=== PATIENT | female | born 1950 | race Caucasian/White ===

== ENCOUNTER 2019-06-06 17:12 | Inpatient (IN) | payer OTHER ==
[~2019-06-06] VITALS: Ht 152.4 cm; Wt 72.6 kg
[2019-06-06 17:30] VITALS: BP 124/77
[2019-06-06 18:36] LABS: BASOPHILS # (AUTO) 0.1 K/uL (0.00-0.22); BASOPHILS % (AUTO) 1.7 % (0.0-2.0); EOSINOPHILS # (AUTO) 0.1 K/uL (0-0.4); EOSINOPHILS % (AUTO) 1.6 % (0.0-4.0); HEMATOCRIT 41.3 % (36-48); HEMOGLOBIN 13.8 g/dL (12.0-16.0); LYMPHOCYTES # (AUTO) 1.8 K/uL (2.5-16.5); LYMPHOCYTES % (AUTO) 21.9 % (20.5-51.1); MEAN CORPUSCULAR HEMOGLOBIN 30 pg (27-31); MEAN CORPUSCULAR HGB CONC 34 g/dL (33-37); MEAN CORPUSCULAR VOLUME 88.5 fL (80-94); MONOCYTES # (AUTO) 0.3 K/uL (0.8-1.0); MONOCYTES % (AUTO) 4.3 % (1.7-9.3); NEUTROPHILS # (AUTO) 5.6 K/uL (1.8-7.7); NEUTROPHILS % (AUTO) 70.5 % (42.2-75.2); PLATELET COUNT (AUTO) 266 K/uL (140-450); RED BLOOD CELL COUNT(AUTO) 4.67 MIL/uL (4.20-5.40); RED CELL DISTRIBUTION WIDTH 15.1 % (11.6-13.7)
[2019-06-06 18:46] LABS: ANION GAP 14.7 (8-16); CARBON DIOXIDE 28.5 mmol/L (21-32); CREATININE 0.8 mg/dL (0.6-1.3); POTASSIUM 4.2 mmol/L (3.5-5.1)
[2019-06-06 18:52] LABS: ALBUMIN 3.7 g/dL (3.4-5.0); TOTAL BILIRUBIN 0.3 mg/dL (0.0-1.0)
--- NOTE | 2019-06-06 19:40 | NUR ---
PT AMBULATED TO BED 8 WITH FAMILY MEMBER
--- NOTE | 2019-06-06 19:56 | NUR ---
PT CAME TO ER C/O OF CHEST PAIN AND PALPITATIONS SINCE 1529 TODAY. CHEST PAIN RADIATING TO LEFT SIDE OF ARM WITH TINGLING TO THE FINGERS. PAIN LEVEL 7/10. PT ALSO HAD SHORTNESS OF BREATH EARLIER, BUT "FEELS FINE NOW." PT STATED "I AM DEALING WITH ALOT OF STRESS FROM WORK." VSS. ALLERGIES: ERYTHROMYCIN. MED HX: HYPOTENSION AND FIBROMYALGIA. SAFETY MEASURES IN PLACE. ERMD AT BEDSIDE.
[2019-06-06] MEDS ORDERED: LORazepam 1 MG TAB PO ONE (20:05)
[2019-06-06] MEDS ORDERED: ASPIRIN 325 MG TAB PO ONE (20:05)
--- NOTE | 2019-06-06 20:44 | NUR ---
PT RESTING IN BED, TALKING ON CELL PHONE. VSS. WILL CONTINUE TO MONITOR.
[2019-06-06] MEDS ORDERED: HYDROcodone/APAP 7.5/325 MG 1 TAB PO PRN (20:50)
[2019-06-06] MEDS ORDERED: ONDANSETRON 4 MG/2 ML VIAL IVP PRN (20:50)
[2019-06-06 21:00] VITALS: BP 117/68
--- NOTE | 2019-06-06 21:10 | NUR ---
Transfer of care and report given to ROHIT Enrique
--- NOTE | 2019-06-06 21:10 | NUR ---
REPORT RECEIVED FROM ED NURSE AT BEDSIDE. PT IN STABLE CONDITION. AAOX4. INTRODUCED SELF TO PT. BOARD UPDATED. NO COMPLAINTS OF PAIN. NO SOB. AFEBRILE. PT IS AMBULATORY. PT SPEAKS PRIMARILY FRENCH. IV SITE R HAND 22G SL PATENT AND INTACT. SKIN WARM, DRY, AND INTACT WITH NO OPEN WOUNDS. BED LOCKED IN LOW POSITION. CALL DESIR WITHIN REACH. SAFETY PRECAUTION IN PLACE. ALL NEEDS MET AT THIS TIME.
--- NOTE | 2019-06-06 21:10 | NUR ---
Patient will be admitted to care of Dr. Hernandez. Admited to Tele. Will go to room 122b. VSS. Belongings list completed. Report to Klaus BEE.
[2019-06-06 21:48] LABS: PROTHROMBIN TIME 9.3 secs (10.8-13.4)
[2019-06-06] MEDS: DOCUSATE SODIUM 100 MG GELCAP PO SCH (21:50)
[2019-06-06] MEDS: ACETAMINOPHEN 325 MG TAB PO PRN (21:50)
--- NOTE | 2019-06-06 21:50 | NUR ---
TYL AND COLACE GIVEN PO. PT TOLERATED WELL.
[2019-06-06 21:57] LABS: FREE T4 (FREE THYROXINE) 0.99 ng/dL (0.76-1.46); THYROID STIMULATING HORMONE 1.1 uIU/mL (0.34-3.74)
[2019-06-06] MEDS ORDERED: NITROGLYCERIN 0.4 MG TAB SL PRN (22:30)
[2019-06-06] MEDS ORDERED: HYDR12.51 PO (22:45)
[2019-06-06] MEDS ORDERED: BUPR150T12 PO (22:45)
[2019-06-06] MEDS ORDERED: LORA-476 PO (22:45)
[2019-06-06] MEDS ORDERED: ZOLP5TAB1 PO (22:45)
[2019-06-06] MEDS ORDERED: [UNRECOGNIZED DRUG - CODE] PO (22:45)
--- NOTE | 2019-06-06 23:30 | NUR ---
PT AWAKE AND ALERT WATCHING TV. NO S/S OF DISTRESS NOTED. WILL CONTINUE TO MONITOR.
[2019-06-07] VITALS: BP 96/58
--- NOTE | 2019-06-07 00:32 | NUR ---
AMBIEN GIVEN FOR INSOMNIA. PT TOLERATED WELL.
[2019-06-07] MEDS ORDERED: ZOLPIDEM 5 MG TAB PO SCH (01:00)
--- NOTE | 2019-06-07 02:45 | NUR ---
PT AWAKE AND ALERT IN BED AFTER BLOOD DRAW. NO S/S OF DISTRESS NOTED. PT STATED AMBIEN DIDNT HELP HER SLEEP. PT WILL CONTINUE TO STAY AWAKE AND WATCH TV.
[2019-06-07] MEDS: NACL 0.9% 1,000 ML IV SCH ×2 (03:00→22:43)
[2019-06-07 04:00] VITALS: BP 109/73
[2019-06-07 04:09] LABS: APPEARANCE,URINE CLEAR (CLEAR); BILIRUBIN,URINE NEGATIVE (NEGATIVE); BLOOD, URINE NEGATIVE (NEGATIVE); COLOR,URINE YELLOW (YELLOW); LEUKOCYTE ESTERASE ,URINE 1+ (NEGATIVE); NITRITE, URINE NEGATIVE (NEGATIVE); UGLUCOSE NEGATIVE (NEGATIVE)
[2019-06-07 04:16] LABS: BARBITURATE, URINE NEG. ng/ml (NEG <=200); BENZODIAZEPINE, URINE NEG. ng/mL (NEG <=200); CANNABINOID, URINE NEG. ng/mL (NEG <=50); COCAINE, URINE NEG. ng/mL (NEG <=300); OPIATE, URINE NEG. ng/mL (NEG <=2000); PHENCYCLIDINE SCREEN,URINE NEG. ng/mL (NEG <=25)
[2019-06-07] MEDS: ACETAMINOPHEN 325 MG TAB PO PRN ×3 (05:00→19:30)
--- NOTE | 2019-06-07 05:00 | NUR ---
TYL GIVEN FOR HEADACHE. PT TOLERATED WELL.
[2019-06-07 05:27] LABS: RBC,URINE 0-5 /HPF (0-5); WBC,URINE 0-5 /HPF (0-5)
[2019-06-07 06:47] LABS: ANION GAP 12.5 (8-16); CARBON DIOXIDE 29.3 mmol/L (21-32); CREATININE 0.8 mg/dL (0.6-1.3); POTASSIUM 3.8 mmol/L (3.5-5.1)
[2019-06-07 06:57] LABS: MAGNESIUM 2.1 mg/dL (1.8-2.4); PHOSPHORUS 4.2 mg/dL (2.5-4.9)
[2019-06-07 07:03] LABS: BASOPHILS % (AUTO) 0.5 % (0.0-2.0); EOSINOPHILS # (AUTO) 0.1 K/uL (0-0.4); EOSINOPHILS % (AUTO) 1.7 % (0.0-4.0); HEMATOCRIT 39.1 % (36-48); HEMOGLOBIN 12.9 g/dL (12.0-16.0); LYMPHOCYTES # (AUTO) 2.2 K/uL (2.5-16.5); MEAN CORPUSCULAR HEMOGLOBIN 29 pg (27-31); MEAN CORPUSCULAR HGB CONC 33 g/dL (33-37); MEAN CORPUSCULAR VOLUME 89.2 fL (80-94); MONOCYTES # (AUTO) 0.7 K/uL (0.8-1.0); MONOCYTES % (AUTO) 8.2 % (1.7-9.3); NEUTROPHILS # (AUTO) 5.9 K/uL (1.8-7.7); NEUTROPHILS % (AUTO) 65.6 % (42.2-75.2); PLATELET COUNT (AUTO) 240 K/uL (140-450); RED BLOOD CELL COUNT(AUTO) 4.39 MIL/uL (4.20-5.40)
--- NOTE | 2019-06-07 07:14 | NUR ---
REPORT GIVEN TO AM NURSE AT BEDSIDE. PT IN STABLE CONDITION.
--- NOTE | 2019-06-07 07:20 | NUR ---
BEDSIDE REPORT RECEIVED FROM WET PROCESS ASSISTANT HEAD MILLER NURSE, PT RESTING QUIETLY, O X4, RESP EVEN UNLABORED, SKIN WARM DRY COLOR WNL, PLAN OF CARE REVIEWED, PT DENIES CHEST PAIN OR DISCOMFORT, ALL SAFETY MEASURES IN PLACE, WILL CONTINUE TO MONITOR.
[2019-06-07] MEDS: ASPIRIN 81 MG TAB.CHEW PO SCH (08:38)
[2019-06-07] MEDS: buPROPion 150 MG TABER PO SCH (08:38)
[2019-06-07] MEDS: DOCUSATE SODIUM 100 MG GELCAP PO SCH ×2 (08:39→21:29)
[2019-06-07] MEDS: HYDROCHLOROTHIAZIDE 25 MG TAB PO SCH (08:41)
--- NOTE | 2019-06-07 08:44 | NUR ---
PATIENT HAS BEEN SCREENED AND CATEGORIZED MODERATE NUTRITION RISK. PATIENT WILL BE SEEN WITHIN 3-5 DAYS OF ADMISSION. 06/09/19[address]
--- NOTE | 2019-06-07 08:46 | NUR ---
AM MEDS GIVEN, PT CLARITZA WELL.
[2019-06-07 08:49] VITALS: BP 126/75
--- NOTE | 2019-06-07 10:54 | NUR ---
PT SITTING AND WATCHING TV. FRESH WATER OFFERED. DENIES ANY NEEDS. CALL LIGHT AT BEDSIDE. WILL CONTINUE TO MONITOR.
--- NOTE | 2019-06-07 11:35 | NUR ---
Entertainment Centre Manager Note: Assessment/Discharge Plan: I met with patient and patient's daughter María Elena Washington at bedside. Patient speaks Cuban. María Elena speaks both [place]an and Cuban. Patient lives at home with Marissa Sherman and patient's Irineo Washington and plans to return home upon discharge. Patient's pcp is David Lopez. She has had same pcp for more than 20 years. She does not have any difficulty filling her prescriptions. Prior to hospital admission patient was not receiving home health services. Patient is independent with ADLs at home. She does not use any DME at home. She takes medication for depression, anxiety, and panic attacks. She denied SI and HI. She is not seeing a psychologist/psychiatrist/therapist for mental health disorders. I asked her if she has considered following up with psychologist/psychiatrist/therapist. She stated she has and thanked me for asking her. I advised her to inform her pcp in case she does want to follow up with psychologist/psychiatrist/therapist. She told me her last appt with pcp was on April 2019 and has an upcoming appt on June 25, 2019. She told me a friend of hers told her David Lopez is no longer practicing in his office. Patient expressed concern about not knowing which MD she will follow up with if David Lopez is no longer practicing. I advised her to contact pcp's office and inquire information. I advised her to contact her health insurance and request to be assigned to another MD if David Lopez is no longer practicing. She verbalized understanding. I provided her with my contact information. Entertainment Centre Manager and/or Ecological Economist will follow up as needed.
--- NOTE | 2019-06-07 11:55 | NUR ---
PT C/P DOMINGO 03/28, TYLENOL WILL BE GIVEN.
[2019-06-07 12:00] VITALS: BP 113/71
--- NOTE | 2019-06-07 14:02 | NUR ---
PT STATES HEAD ACHE IMPROVED. PT UP AND OUT OF BED AMBULATED TO BATHROOM.
[2019-06-07 16:00] VITALS: BP 116/73
--- NOTE | 2019-06-07 17:17 | NUR ---
PT AWAKE AND ALERT IN BED SITTIGN AND TALKING TO FAMILY MEMBER. PATIENT ALSO AMBULATED ANS USED RESTROOM WITHOUT ASSISTANCE.
--- NOTE | 2019-06-07 19:14 | NUR ---
REPORT GIVEN TO HAND ALMOND BLANCHER NURSE AT BEDSIDE.
--- NOTE | 2019-06-07 19:15 | NUR ---
RECEIVED BEDSIDE REPORT FROM DAY SHIFT NURSE RICHA RN, PT STABLE, NO DISTRESS NOTED, IV TO R HAND 22G PATEN, INTACT, INFUSING WELL, PT ON ROOM AIR, NO SOB NOTED, PT STATED HAVE TOLERABLE CHEST PAIN AT THIS MOMENT, BUT HAVE A HEADACHE, WILL MEDICATE, INITIAL ASSESSMENT DONE, ALL SAFETY PRECAUTION MET, CALL LIGHT WITHIN REACH, WILL CONTINUE TO MONITOR.
--- NOTE | 2019-06-07 19:30 | NUR ---
TYLENOL PER MD ORDER GIVEN FOR HEADACHE, PT TOLERATED WELL, NO DISTRESS NOTED, CALL WM AVILA, WILL CONTINUE TO MONITOR.
[2019-06-07 20:00] VITALS: BP 111/69
[2019-06-07] MEDS ORDERED: ZOLPIDEM TARTRATE 5 MG PO SCH (21:00)
[2019-06-07] MEDS: LORazepam 1 MG TAB PO SCH (21:29)
[2019-06-07] MEDS: ZOLPIDEM 5 MG TAB PO SCH ×2 (21:29)
[2019-06-07] MEDS: ATORVASTATIN 20 MG TAB PO SCH (21:30)
--- NOTE | 2019-06-07 21:33 | NUR ---
DUE MEDICATION ADMINISTERED, PT TOLERATED WELL, NO DISTRESS NOTED, CALL LIGHT WITHIN REACH, WILL CONTINUE TO MONITOR.
[2019-06-08] VITALS: BP 102/52
--- NOTE | 2019-06-08 00:01 | NUR ---
PT SLEEPING, V/S TAKEN, WNL, CALL LIGHT WITHIN REACH, WILL CONTINUE TO MONITOR.
--- NOTE | 2019-06-08 02:29 | NUR ---
CHECKED ON PT, PT SLEEPING, V/S TAKEN WNL, CALL LIGHT WITHIN REACH, WILL CONTINUE TO MONITOR.
[2019-06-08 04:00] VITALS: BP 106/69
--- NOTE | 2019-06-08 04:18 | NUR ---
PT SLEEPING, V/S TAKEN, WNL, CALL LIGHT WITHIN REACH, WILL CONTINUE TO MONITOR.
[2019-06-08] MEDS ORDERED: KETOROLAC 30 MG/ML VIAL IVP ONE (05:00)
--- NOTE | 2019-06-08 05:06 | NUR ---
PT WOKE UP AND STATED HAVING HEADACHE AND STATED TYLENOL EARLIER DID NOT HELP MUCH, NOTIFIED DR. SLOAN, ORDERED TORADOL, MEDICATION ADMINISTERED, PT TOLERATED WELL, NO DISTRESS NOTED, CALL LIGHT WITHIN REACH, WILL CONTINUE TO MONITOR.
[2019-06-08 06:47] LABS: BASOPHILS % (AUTO) 0.4 % (0.0-2.0); EOSINOPHILS # (AUTO) 0.2 K/uL (0-0.4); EOSINOPHILS % (AUTO) 2.4 % (0.0-4.0); HEMATOCRIT 39.4 % (36-48); HEMOGLOBIN 12.7 g/dL (12.0-16.0); LYMPHOCYTES # (AUTO) 1.9 K/uL (2.5-16.5); LYMPHOCYTES % (AUTO) 23.3 % (20.5-51.1); MEAN CORPUSCULAR HEMOGLOBIN 29 pg (27-31); MEAN CORPUSCULAR HGB CONC 32 g/dL (33-37); MEAN CORPUSCULAR VOLUME 90.8 fL (80-94); MONOCYTES # (AUTO) 0.6 K/uL (0.8-1.0); MONOCYTES % (AUTO) 7.7 % (1.7-9.3); NEUTROPHILS # (AUTO) 5.3 K/uL (1.8-7.7); NEUTROPHILS % (AUTO) 66.2 % (42.2-75.2); PLATELET COUNT (AUTO) 252 K/uL (140-450); RED BLOOD CELL COUNT(AUTO) 4.34 MIL/uL (4.20-5.40); RED CELL DISTRIBUTION WIDTH 15.1 % (11.6-13.7)
[2019-06-08 07:06] LABS: ANION GAP 10.9 (8-16); CREATININE 0.8 mg/dL (0.6-1.3); POTASSIUM 3.9 mmol/L (3.5-5.1)
--- NOTE | 2019-06-08 07:14 | NUR ---
ENDORSED PT TO DAY SHIFT NURSE RICHA RN, PT STABLE, NO DISTRESS NOTED, CALL LIGHT WITHIN REACH.
--- NOTE | 2019-06-08 07:18 | NUR ---
REPORT RECEIVED FROM PREPARATION DEPARTMENT SUPERVISOR NURSE, PT AWAKE RESTING QUIETLY, RESP EVEN UNLABORED, SKIN WARM DRY COLOR WNL, PT DENIES CHEST PAIN, STATES DOMINGO BETTER, POC REVIEWED, NO IMMEDIATE NEEDS AT THIS TIME, ALL SAFETY MEASURES IN PLACE, WILL CONTINUE TO MONITOR.
[2019-06-08 08:00] VITALS: BP 112/71
[2019-06-08] MEDS: HYDROCHLOROTHIAZIDE 25 MG TAB PO SCH (09:00)
[2019-06-08] MEDS: ASPIRIN 81 MG TAB.CHEW PO SCH (09:52)
[2019-06-08] MEDS: buPROPion 150 MG TABER PO SCH (09:52)
[2019-06-08] MEDS: DOCUSATE SODIUM 100 MG GELCAP PO SCH ×2 (09:53→21:12)
[2019-06-08] MEDS: ACETAMINOPHEN 325 MG TAB PO PRN (09:55)
--- NOTE | 2019-06-08 09:58 | NUR ---
AM MEDS GIVEN, PT CLARITZA WELL, PT C/O DOMINGO, TYLENOL GIVEN FOR DOMINGO.
[2019-06-08] MEDS ORDERED: APAP/BUTAL/CAFF 325/50/40 MG 1 TAB PO PRN (11:30)
--- NOTE | 2019-06-08 11:30 | NUR ---
PT SITTING UP IN BED TEARFUL, DAUGHTER AT BEDSIDE, PT STATES OTHER FAMILY MEMBERS ARE MAD AT HER BECAUSE SHE DOESN'T KNOW THE RESULTS OF THE TESTS DONE AT HOSPITAL, PT AND DAUGHTER REQUESTS THAT TALENT REP IS PRESENT WHEN DOCTORS SPEAK WITH PT, POC DISCUSSED WITH PT AND DAUGHTER, WILL NOTIFY DR MILLER.,
--- NOTE | 2019-06-08 11:50 | NUR ---
RECEIVED REPORT FROM [facility]. PT AAOX4. NO S/S OF ACUTE DISTRESS. PT STATES PAIN. IV SITE PATENT AND INTACT. CALL LIGHT WITHIN REACH. SAFETY MEASURES ENSURED. WILL CONTINUE TO MONITOR.
--- NOTE | 2019-06-08 11:50 | NUR ---
DR GAMBOA AT BEDSIDE TO DISCUSS POC WITH PT AND DAUGHTER
[2019-06-08 12:00] VITALS: BP 132/76
[2019-06-08] MEDS: LORazepam 1 MG TAB PO PRN (12:31)
[2019-06-08 16:00] VITALS: BP 127/80
--- NOTE | 2019-06-08 16:14 | NUR ---
PT RESTING IN BED. NO S/S OF ACUTE DISTRESS. PT DENIES PAIN. CALL LIGHT WITHIN REACH. SAFETY MEASURES ENSURED. WILL CONTINUE TO MONITOR.
[2019-06-08] MEDS: NACL 0.9% 1,000 ML IV SCH (17:22)
--- NOTE | 2019-06-08 19:15 | NUR ---
RECEIVED BEDSIDE REPORT FROM DAY SHIFT NURSE. FAMILY AT BEDSIDE. NO S/S NOTED SOB ON ROOM AIR. NO DISTRESS NOTED, IV TO R HAND 22G PATENT, INTACT, ASYMPTOMATIC. DENIES PAIN. SKIN INTACT, WARM AND DRY TO TOUCH. BOARD UPDATED. ALL SAFETY PRECAUTION MET, CALL LIGHT WITHIN REACH, WILL CONTINUE TO MONITOR.
[2019-06-08 20:00] VITALS: BP 116/68
[2019-06-08] MEDS: LORazepam 1 MG TAB PO SCH (21:13)
[2019-06-08] MEDS: ZOLPIDEM 5 MG TAB PO SCH (21:13)
[2019-06-08] MEDS: ATORVASTATIN 20 MG TAB PO SCH (21:13)
--- NOTE | 2019-06-08 21:13 | NUR ---
ADMINISTERED AMBIEN, BTIVAN, COLACE, AND LIPITOR MD ORDERED. PT TOLERATED WELL.
[2019-06-09] VITALS: BP 93/60
--- NOTE | 2019-06-09 00:05 | NUR ---
VS CHECKED, WITHIN PT'S BASELINE. WILL CONTINUE TO MONITOR.
--- NOTE | 2019-06-09 02:00 | NUR ---
PT SLEEPING IN BED. NO ACUTE DISTRESS NOTED.
[2019-06-09 04:00] VITALS: BP 111/66
--- NOTE | 2019-06-09 04:01 | NUR ---
VS CHECKED, WITHIN PT'S BASELINE. BED IN LOW POSITION. CALL LIGHT WITHIN REACH.
--- NOTE | 2019-06-09 06:50 | NUR ---
PT SLEEPING IN BED COMFORTABLY. NO ACUTE DISTRESS NOTED. BED IN LOW POSITION, CALL LIGHT WITHIN REACH.
--- NOTE | 2019-06-09 07:29 | NUR ---
RECEIVED BEDSIDE REPORT FROM LASTING ROOM MACHINE OPERATOR NURSE. NO S/S NOTED SOB OR CHEST PAIN ON ROOM AIR. NO DISTRESS NOTED, IV TO R HAND 22G PATENT, INTACT, ASYMPTOMATIC. DENIES PAIN. SKIN INTACT, WARM AND DRY TO TOUCH. BOARD UPDATED. ALL SAFETY PRECAUTION MET, CALL LIGHT WITHIN REACH, WILL CONTINUE TO MONITOR.
[2019-06-09 08:00] VITALS: BP 112/74
[2019-06-09 08:32] LABS: BASOPHILS % (AUTO) 0.5 % (0.0-2.0); EOSINOPHILS # (AUTO) 0.2 K/uL (0-0.4); EOSINOPHILS % (AUTO) 2.1 % (0.0-4.0); HEMOGLOBIN 12.4 g/dL (12.0-16.0); LYMPHOCYTES # (AUTO) 1.9 K/uL (2.5-16.5); LYMPHOCYTES % (AUTO) 25.6 % (20.5-51.1); MEAN CORPUSCULAR HEMOGLOBIN 30 pg (27-31); MEAN CORPUSCULAR HGB CONC 33 g/dL (33-37); MEAN CORPUSCULAR VOLUME 90.6 fL (80-94); MONOCYTES # (AUTO) 0.5 K/uL (0.8-1.0); MONOCYTES % (AUTO) 6.2 % (1.7-9.3); NEUTROPHILS % (AUTO) 65.6 % (42.2-75.2); PLATELET COUNT (AUTO) 241 K/uL (140-450); RED BLOOD CELL COUNT(AUTO) 4.19 MIL/uL (4.20-5.40); RED CELL DISTRIBUTION WIDTH 15.2 % (11.6-13.7); WHITE BLOOD COUNT (AUTO) 7.6 K/uL (4.8-10.8)
[2019-06-09 08:40] LABS: ANION GAP 9.1 (8-16); CARBON DIOXIDE 30.4 mmol/L (21-32); CREATININE 0.9 mg/dL (0.6-1.3); POTASSIUM 4.5 mmol/L (3.5-5.1)
[2019-06-09 08:44] LABS: MAGNESIUM 2.1 mg/dL (1.8-2.4); PHOSPHORUS 3.7 mg/dL (2.5-4.9)
[2019-06-09] MEDS: buPROPion 150 MG TABER PO SCH (09:00)
[2019-06-09] MEDS: HYDROCHLOROTHIAZIDE 25 MG TAB PO SCH (09:00)
[2019-06-09] MEDS: DOCUSATE SODIUM 100 MG GELCAP PO SCH (09:00)
[2019-06-09] MEDS: ASPIRIN 81 MG TAB.CHEW PO SCH (09:00)
--- NOTE | 2019-06-09 09:47 | NUR ---
PT RESTING IN BED. NO MORNING MEDS GIVEN DUE TO CANDIDO SCAN. ALL NEEDS MET. WILL CONTINUE TO ROUND FREQUENTLY ON PT.
[2019-06-09] MEDS ORDERED: REGADENOSON 0.4 MG/5 ML SYR IV SCH (09:52)
--- NOTE | 2019-06-09 09:54 | NUR ---
PT TAKEN TO CANDIDO SCAN. PT IN STABLE CONDITION.
--- NOTE | 2019-06-09 11:47 | NUR ---
PT RESTING IN BED. ALL NEEDS MET. WILL CONTINUE TO MONITOR PT CLOSELY. PT AWAITING 2ND PART OF L[place].
[2019-06-09] MEDS: ACETAMINOPHEN 325 MG TAB PO PRN (12:48)
--- NOTE | 2019-06-09 13:56 | NUR ---
PT LEFT TO [facility]. WILL CONTINUE TO MONITOR PT CLOSELY.
--- NOTE | 2019-06-09 14:36 | NUR ---
PT RETURNED FROM [employer]. PT AWAITING RESULTS.
[2019-06-09] MEDS: NACL 0.9% 1,000 ML IV SCH (15:00)
[2019-06-09 16:00] VITALS: BP 106/70
--- NOTE | 2019-06-09 16:47 | NUR ---
PT IN STALBE CONDITION, ALL NEEDS MET. WILL CONTINUE TO ROUND FREQUENTLY ON PT.
[2019-06-09] MEDS: LORazepam 1 MG TAB PO PRN (17:20)
--- NOTE | 2019-06-09 18:02 | NUR ---
PT RESTING WITH FAM AT BEDISDE. ALL NEEDS MET
[2019-06-09 19:18] VITALS: BP 121/73
--- NOTE | 2019-06-09 19:23 | NUR ---
ENDORSED PT TO SEARCH AND RESCUE OFFICER FOR CONTINUITY OF CARE. PT IN STABLE CONDITION AT THIS TIME.
--- NOTE | 2019-06-09 19:24 | NUR ---
RECEIVED BEDSIDE REPORT FROM DAY SHIFT NURSE. PT NO S/S OF SOB NOTED ON ROOM AIR. SKIN INTACT, WARM AND DRY TO TOUCH. FAMILY AT BED SIDE AND PT WAITING FOR DISCHARGE SOON. NO ACUTE DISTRESS NOTED. VS CHECKED. WITHIN NORMAL RANGE.
--- NOTE | 2019-06-09 19:30 | NUR ---
IV REMOVED, CANNULA INTACT. TELE MONITORING REMOVED. DISCHARGE PACKET PROVIDED WITH EDUCATION. PT VERBALIZED UNDERSTANDING. PT LEFT WITH DAUGHTER AND SPOUSE.
== END 2019-06-09 21:52 | disposition home or self-care (01) | DRG 313 ==
LOC: MED 17:12 → MTU 20:50
PROVIDERS: ADMIT General Practice; ATTEND General Practice
DX: R07.89 Other chest pain (principal); I10 Essential (primary) hypertension; M79.7 Fibromyalgia; E66.9 Obesity, unspecified; F41.9 Anxiety disorder, unspecified; F32.9 Major depressive disorder, single episode, unspecified; G47.00 Insomnia, unspecified; T50.5X5A Adverse effect of appetite depressants, initial encounter; Z68.32 Body mass index [BMI] 32.0-32.9, adult; Z90.710 Acquired absence of both cervix and uterus; Z88.1 Allergy status to other antibiotic agents; Z79.899 Other long term (current) drug therapy; Z82.49 Family history of ischemic heart disease and other diseases of the circulatory system; Z83.3 Family history of diabetes mellitus; Y92.89 Other specified places as the place of occurrence of the external cause
CPT/HCPCS: 36415; 71045; 80048; 80053; 80305; 81001; 82150; 83036; 83690; 83735; 83880; 84100; 84439; 84443; 84484; 85025; 85379; 85610; 85730; 87081; 87086; 93005; 93017; 99285; A9500; A9502; J1885; J2785; J7030

== ENCOUNTER 2024-07-11 14:20 | Emergency (ER) | payer OTHER ==
[~2024-07-11] VITALS: Ht 152.4 cm; Wt 70.3 kg
[~2024-07-11 14:20] MED LIST: BUPR150T12 PO; HYDR12.51 PO; LORA-476 PO; ZOLP5TAB1 PO; [UNRECOGNIZED DRUG - CODE] PO
[2024-07-11 14:40] VITALS: BP 111/69; PULSE 98; RESP 16; TEMP 98.5; O2SAT 98
[2024-07-11 15:32] LABS: BASOPHILS # (AUTO) 0.1 K/uL (0.00-0.22); EOSINOPHILS # (AUTO) 0.2 K/uL (0-0.4); HEMATOCRIT 40.4 % (36-48); HEMOGLOBIN 13.2 g/dL (12.0-16.0); LYMPHOCYTES # (AUTO) 2.1 K/uL (2.5-16.5); LYMPHOCYTES % (AUTO) 29.5 % (20.5-51.1); MEAN CORPUSCULAR HEMOGLOBIN 29 pg (27-31); MEAN CORPUSCULAR HGB CONC 33 g/dL (33-37); MEAN CORPUSCULAR VOLUME 89.1 fL (80-94); MONOCYTES # (AUTO) 0.5 K/uL (0.8-1.0); MONOCYTES % (AUTO) 7.6 % (1.7-9.3); NEUTROPHILS # (AUTO) 4.2 K/uL (1.8-7.7); NEUTROPHILS % (AUTO) 58.9 % (42.2-75.2); PLATELET COUNT (AUTO) 269 K/uL (140-450); RED BLOOD CELL COUNT(AUTO) 4.54 MIL/uL (4.20-5.40); WHITE BLOOD COUNT (AUTO) 7.1 K/uL (4.8-10.8)
[2024-07-11 15:46] LABS: ANION GAP 9.8 (8-16); CALCIUM 8.5 mg/dL (8.5-10.1); CARBON DIOXIDE 30.6 mmol/L (21-32); CHLORIDE 103 mmol/L (98-107); CREATININE 0.9 mg/dL (0.6-1.3); GLUCOSE 88 mg/dL (74-106); POTASSIUM 4.4 mmol/L (3.5-5.1); SODIUM SERUM 139 mmol/L (136-145); UREA NITROGEN, BLOOD 13 mg/dL (7-18)
[2024-07-11 15:54] LABS: INR 0.89 (0.8-1.2); PARTIAL THROMBOPLASTIN TIME 28.2 secs (22-35.6); PROTHROMBIN TIME 9.5 secs (10.8-13.4)
[2024-07-11] MEDS ORDERED: ONDANSETRON 4 MG/2 ML VIAL ONE (17:12)
[2024-07-11 19:30] VITALS: O2SAT 96
[2024-07-11] MEDS: KETOROLAC 30 MG/ML VIAL IVP ONE (19:56)
[2024-07-11 21:58] VITALS: BP 117/45; PULSE 78; RESP 16; TEMP 98.5; O2SAT 96
== END 2024-07-11 21:58 | disposition home or self-care (01) ==
LOC: MED 14:20
DX: R51.9 Headache, unspecified (principal); R07.9 Chest pain, unspecified; R42 Dizziness and giddiness; E11.9 Type 2 diabetes mellitus without complications; R41.82 Altered mental status, unspecified; Z86.73 Personal history of transient ischemic attack (TIA), and cerebral infarction without residual deficits; Z98.890 Other specified postprocedural states; Z79.899 Other long term (current) drug therapy; Z88.8 Allergy status to other drugs, medicaments and biological substances
CPT/HCPCS: 36415; 70450; 70496; 70498; 71045; 80048; 84484; 85025; 85610; 85730; 93005; 96374; 99285; J1885; Q0092; Q9967; J2405